=== PATIENT | male | born 1935 ===

== ENCOUNTER → 2020-01-05 | Outpatient (CLI) | payer MEDICARE, OTHER ==
[2020-01-05 13:55] LABS: Stool Occult Bld Immuno 1 Negative (NEGATIVE)
== END | disposition home or self-care (01) ==
LOC: LAB UVN 13:43 → EDSTATUS 15:41
PROVIDERS: Family Medicine
DX: R19.5 Other fecal abnormalities (principal); D64.89 Other specified anemias
CPT/HCPCS: 82274